=== PATIENT | female | born 1945 | race Hispanic/Latino ===

== ENCOUNTER 2017-01-14 15:04 | Outpatient (CLI) | payer MEDICARE ==
--- NOTE | 2017-01-14 15:43 | XRay Report ---
Right ankle 3 views: History: Ankle pain. Findings: Marked soft tissue swelling. Mild arthritic changes in the ankle joint. No fracture or dislocation. Spur at medial malleolus probably related to old injury. Large spur posteriosuperior and posterio inferior calcaneum. Impression: Findings as detailed above.
== END 2017-01-14 15:05 | disposition home or self-care (01) ==
LOC: SPVIMAG 15:04
DX: M19.071 Primary osteoarthritis, right ankle and foot (principal)